=== PATIENT | female | born 1960 | race Caucasian/White ===

== ENCOUNTER → 2016-06-10 | Outpatient (CLI) | payer MEDICARE, OTHER ==
[~2016-06-10] MED LIST: ASPIR-TRIN325 MG PO; CELEXA10 MG PO; CLARITIN10 MG PO; DEXILANT30 MG PO; LASIX20 MG PO; LIPITOR TAB 1010 MG PO; NASONEX17 GM; NITRO-TIME2.5 MG PO; PLAVIX 75 MG TA75 MG PO; PLETAL 100 MG100 MG PO; TOPROL XL 25 MG25 MG PO; TRAZODONE HCL150 MG PO
== END ==
LOC: MAMO 14:46
DX: Z12.31 Encounter for screening mammogram for malignant neoplasm of breast (principal)
CPT/HCPCS: G0202

== ENCOUNTER → 2016-07-20 | Outpatient (CLI) | payer MEDICARE, OTHER | LOC: RAD 07-17 08:30 | DX: R13.14 Dysphagia, pharyngoesophageal phase (principal) | CPT/HCPCS: 74220 ==

== ENCOUNTER → 2021-05-30 | Outpatient (CLI) | payer MEDICARE, OTHER | LOC: KOH-I 13:42 | DX: J20.9 Acute bronchitis, unspecified (principal) | CPT/HCPCS: 71046 ==